=== PATIENT | female | born 1995 | race Caucasian/White ===

== ENCOUNTER 2018-09-05 17:58 | Inpatient (IN) | payer MEDICAID ==
[2018-09-05] MEDS ORDERED: Acetaminophen 325 MG Tab PO PRN (20:12)
[2018-09-05] MEDS ORDERED: Sodium Chloride 0.9% 10 ML Syringe FLUSH PRN (20:12)
--- NOTE | 2018-09-05 20:24 | PCM.LDHP ---
L&D History of Present Illness - General Date of Service: 09/05/18 (labor, PROM) Admit Problem/Dx: Patient Status Order with Admit Dx/Problem 09/05/18 18:15 Admission Status [Patient Status] [ADT] Routine 09/05/18 20:13 Patient Status [ADT] Routine Admission Diagnosis/Problem Admission Diagnosis/Problem Labor established Source of Information: Patient History Limitations: Reports: No Limitations - History of Present Illness Timing/Duration: Reports: minutes: (2) Location, : Reports: Lower back Quality: Reports: Pressure Severity: Mild Improves with: Reports: None Worsens with: Reports: None Associated Symptoms: Reports: vaginal fluid - Related Data Allergies/Adverse Reactions: Allergies Allergy/AdvReac Type Severity Reaction Status Date / Time bee pollen Allergy Severe Hives Verified 09/05/18 18:48 Past Medical History 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: : 3 Para: 0 LMP (Approximate): (TYLOR 09/05/18) Other OB/BYN History: D and C - Past Surgical History Cardiovascular Surgical History: Reports: None GI Surgical History: Reports: Hernia, Abdominal Social & Family History - Family History Family Medical History: Noncontributory - Tobacco Use Smoking Status *Q: Current Every Day Smoker Years of Tobacco use: 5 Packs/Tins Daily: 0.5 Used Tobacco, but Quit: No Second Hand Smoke Exposure: Yes - Caffeine Use Caffeine Use: Reports: Soda - Recreational Drug Use Recreational Drug Use: No H&P Review of Systems - Review of Systems: Review Of Systems: See Below General: Reports: No Symptoms HEENT: Reports: No Symptoms Pulmonary: Reports: No Symptoms Cardiovascular: Reports: No Symptoms Gastrointestinal: Reports: No Symptoms Genitourinary: Reports: No Symptoms Musculoskeletal: Reports: No Symptoms Skin: Reports: No Symptoms Psychiatric: Reports: No Symptoms Neurological: Reports: No Symptoms Hematologic/Lymphatic: Reports: No Symptoms Immunologic: Reports: No Symptoms L&D Exam - Exam Exam: See Below - Vital Signs Vital Signs: Last Vital Signs Temp 97.7 F 09/05/18 18:30 Pulse 110 H 09/05/18 18:30 Resp 16 09/05/18 18:30 BP 110/70 09/05/18 18:30 Pulse Ox 97 09/05/18 18:30 - OB Specific Contraction Duration (sec): 50-70 Contraction Frequency (min): 3-5 Contraction Intensity: Mild Movement: Active Heart Tones: Present Heart Rate (FHR) Variability: Moderate (6-25 bmp) Presentation: Vertex Estimated Weight: 7 pounds - Stanley Score Stanley Score Cervix Position: Midposition Stanley Score Consistency: Soft Stanley Score Effacement: 51-70% Stanley Score Dilation: 1-2 cm Stanley Score Infant's Station: -1 ,0 Stanley Score Total: 8 - Exam General: Alert, Oriented HEENT: PERRLA, Conjunctiva Clear, Mucosa Moist & Banks, Pupils Equal Neck: Supple Lungs: Clear to Auscultation, Normal Respiratory Effort Cardiovascular: Regular Rate, Regular Rhythm GI/Abdominal Exam: Normal Bowel Sounds, No Mass Rectal Exam: Normal Rectal Tone Genitourinary: Cervical dilitation, Enlarged uterus, Vaginal discharge Back Exam: Normal Inspection, Full Range of Motion Extremities: No Pedal Edema, Normal Capillary Refill Skin: Warm, Dry, Intact Neurological: Cranial Nerves Intact, Reflexes Equal Bilateral Psychiatric: Alert, Normal Affect, Normal Mood - Patient Data Lab Results Last 24 hrs: Laboratory Results - last 24 hr 09/05/18 09/05/18 09/05/18 Range/Units 18:14 18:16 19:55 WBC (4.5-11.0) K/uL RBC (3.30-5.50) M/uL Hgb (12.0-15.0) g/dL Hct (36.0-48.0) % MCV (80-98) fL MCH (27-31) pg MCHC (32-36) % Plt Count (150-400) K/uL Neut % (Auto) (36-66) % Lymph % (Auto) (24-44) % Mckean % (Auto) (2-6) % Eos % (Auto) (2-4) % Baso % (Auto) (0-1) % Urine Color Yellow Urine Appearance Slightly cloudy Urine pH 5.0 (4.5-8.0) Ur Specific [place] 1.010 (1.008-1.030) Urine Protein Negative (NEGATIVE) mg/dL Urine Glucose (UA) Normal (NEGATIVE) mg/dL Urine Ketones Negative (NEGATIVE) mg/dL Urine Occult Blood Negative (NEGATIVE) Urine Nitrite Negative (NEGATIVE) Urine Bilirubin Negative (NEGATIVE) Urine Urobilinogen Normal (NORMAL) mg/dL Ur Leukocyte Esterase Negative (NEGATIVE) Membrane Rupture Positive H (NEGATIVE) Urine Opiates Screen Negative (NEGATIVE) Ur Oxycodone Screen Negative (NEGATIVE) Urine Methadone Screen Negative (NEGATIVE) Ur Propoxyphene Screen Negative (NEGATIVE) Ur Barbiturates Screen Negative (NEGATIVE) Ur Tricyclics Screen Negative (NEGATIVE) Ur Phencyclidine Scrn Negative (NEGATIVE) Ur Amphetamine Screen Negative (NEGATIVE) U Methamphetamines Scrn Negative (NEGATIVE) Urine MDMA Screen Negative (NEGATIVE) U Benzodiazepines Scrn Negative (NEGATIVE) U Cocaine Metab Screen Negative (NEGATIVE) U Marijuana (THC) Screen Negative (NEGATIVE) 09/05/18 Range/Units 20:02 WBC 13.8 H (4.5-11.0) K/uL RBC 3.87 (3.30-5.50) M/uL Hgb 10.8 L (12.0-15.0) g/dL Hct 33.7 L (36.0-48.0) % MCV 87 (80-98) fL MCH 28 (27-31) pg MCHC 32 (32-36) % Plt Count 176 (150-400) K/uL Neut % (Auto) 76 H (36-66) % Lymph % (Auto) 16 L (24-44) % Mckean % (Auto) 8 H (2-6) % Eos % (Auto) 1 L (2-4) % Baso % (Auto) 0 (0-1) % Urine Color Urine Appearance Urine pH (4.5-8.0) Ur Specific [place] (1.008-1.030) Urine Protein (NEGATIVE) mg/dL Urine Glucose (UA) (NEGATIVE) mg/dL Urine Ketones (NEGATIVE) mg/dL Urine Occult Blood (NEGATIVE) Urine Nitrite (NEGATIVE) Urine Bilirubin (NEGATIVE) Urine Urobilinogen (NORMAL) mg/dL Ur Leukocyte Esterase (NEGATIVE) Membrane Rupture (NEGATIVE) Urine Opiates Screen (NEGATIVE) Ur Oxycodone Screen (NEGATIVE) Urine Methadone Screen (NEGATIVE) Ur Propoxyphene Screen (NEGATIVE) Ur Barbiturates Screen (NEGATIVE) Ur Tricyclics Screen (NEGATIVE) Ur Phencyclidine Scrn (NEGATIVE) Ur Amphetamine Screen (NEGATIVE) U Methamphetamines Scrn (NEGATIVE) Urine MDMA Screen (NEGATIVE) U Benzodiazepines Scrn (NEGATIVE) U Cocaine Metab Screen (NEGATIVE) U Marijuana (THC) Screen (NEGATIVE) Result Diagrams: 09/05/18 20:02 - Problem List (1) Smoker SNOMED Code(s): 90478316 ICD Code: F17.200 - NICOTINE DEPENDENCE, UNSPECIFIED, UNCOMPLICATED Status : Acute Current Visit: Yes (2) SNOMED Code(s): 09988067 ICD Code: Z34.90 - ENCNTR FOR SUPRVSN OF NORMAL , UNSP, UNSP TRIMESTER Status: Acute Current Visit: Yes Qualifiers: Weeks of gestation: 38 weeks Qualified Code(s): Z3A.38 - 38 weeks gestation of (3) PROM (premature rupture of membranes) SNOMED Code(s): 72064348 ICD Code: O42.90 - ASHANTI ROM, 7TH0 BETW RUPT & ONST LABR, UNSP WEEKS OF GEST Status: Acute Current Visit: Yes Qualifiers: PROM onset of labor timing: onset of labor within 24 hours of rupture Problem List Initiated/Reviewed/Updated: Yes Orders Last 24hrs: Active Orders 24 hr Category Date Time Status Patient Status [ADT] Routine ADT 09/05/18 20:13 Ordered Antiembolic Devices [RC] .Routine Care 09/05/18 20:15 Ordered Communication Order [RC] ASDIRECTED Care 09/05/18 20:13 Ordered Communication Order [RC] Per Unit Routine Care 09/05/18 20:13 Ordered Communication Order [RC] Per Unit Routine Care 09/05/18 20:13 Ordered Communication Order [RC] Per Unit Routine Care 09/05/18 20:13 Ordered Heart Tones [RC] PER UNIT ROUTINE Care 09/05/18 20:13 Ordered Non Stress Test [RC] Click to Edit Care 09/05/18 20:13 Ordered May Shower [RC] ASDIRECTED Care 09/05/18 20:12 Ordered Nitrous Oxide Delivery [RC] ASDIRECTED Care 09/05/18 20:13 Ordered Notify Provider Vital Signs [RC] PRN Care 09/05/18 20:12 Ordered Notify Provider [RC] PRN Care 09/05/18 20:13 Ordered Oxygen Therapy [RC] ASDIRECTED Care 09/05/18 20:13 Ordered Pulse Oximetry [RC] ASDIRECTED Care 09/05/18 20:13 Ordered Up ad Rosamaria [RC] ASDIRECTED Care 09/05/18 20:12 Ordered VTE/DVT Education [RC] Click to Edit Care 09/05/18 20:15 Ordered Verify Patient Consent Obtain [RC] ASDIRECTED Care 09/05/18 20:13 Ordered Vital Signs [RC] PER UNIT ROUTINE Care 09/05/18 20:13 Ordered Vital Signs [RC] PER UNIT ROUTINE Care 09/05/18 20:13 Ordered Clear Liquid Diet [DIET] Diet 09/06/18 Breakfast Ordered CBC W/O DIFF,HEMOGRAM [HEME] Routine Lab 09/05/18 20:12 Ordered Acetaminophen [Tylenol] Med 09/05/18 20:12 Ordered 650 mg PO Q4H PRN Oxytocin/Normal Saline [Pitocin in NS 20 Units/1,000 ML Med 09/05/18 20:18 Ordered ] 20 unit in 1,000 ml IV ONETIME Sodium Chloride 0.9% [Saline Flush] Med 09/05/18 20:12 Ordered 10 ml FLUSH ASDIRECTED PRN fentaNYL [Sublimaze] Med 09/05/18 20:12 Ordered 100 mcg IVPUSH Q1H PRN DVT/VTE Prophylaxis Reflex [OM.PC] Routine Oth 09/05/18 20:12 Ordered Saline Lock Insert [OM.PC] Routine Oth 09/05/18 20:13 Ordered Resuscitation Status Routine Resus Stat 09/05/18 20:12 Ordered Medication Orders Acetaminophen (Tylenol) 650 mg PO Q4H PRN PRN Reason: Pain (Mild 1-3) and fever Fentanyl (Sublimaze) 100 mcg IVPUSH Q1H PRN PRN Reason: Pain (moderate 4-6) Oxytocin/Sodium Chloride (Pitocin In Ns 20 Units/1,000 Ml) 20 unit in 1,000 mls @ 999 mls/hr IV ONETIME ONE; Protocol Stop: 09/05/18 21:18 Sodium Chloride (Saline Flush) 10 ml FLUSH ASDIRECTED PRN PRN Reason: Keep Vein Open Assessment/Plan Comment:: 09/05/18 This 23 year old presented with rupture of membranes at home at about 1600 this evening. Fluid was clear. She is 38 3/7 weeks gestation, based on Early US. Positive AmniSure. Contractions started and are about 2-3 minutes apart and regular. Labs: HIV neg, Rubella Immune, GBS neg, ABO A pos cervical exam by nurse was 2-3 /60/-1 at 1855. Plan: Admit for PROM Monitor for active labor. Doesn't want an epidural would like IV meds and or Nitrous for pain management UDS and UA neg HGB 10.8 and PLT 176 Smoker
[2018-09-05] MEDS: fentaNYL 100 MCG/2 ML SDV IVPUSH PRN ×2 (21:41→22:45)
[2018-09-05] MEDS: Lactated Ringers 1,000 ML IV SCH (22:39)
[2018-09-06] MEDS ORDERED: Ondansetron 4 MG/2 ML SDV IVPUSH PRN (00:30)
[2018-09-06] MEDS ORDERED: ePHEDrine 50 MG/ML SDV ONE (00:50)
[2018-09-06] MEDS ORDERED: Ropivacaine 100 ML ONE (01:15)
[2018-09-06] MEDS ORDERED: ePHEDrine 50 MG/ML SDV IVPUSH PRN (01:31)
[2018-09-06] MEDS ORDERED: diphenhydrAMINE 50 MG/ML SDV IVPUSH PRN ×2 (01:31)
[2018-09-06] MEDS ORDERED: Naloxone 0.4 MG/ML SDV IVPUSH PRN (01:31)
[2018-09-06] MEDS ORDERED: Sodium Chloride 0.9% 10 ML Syringe FLUSH PRN (01:31)
[2018-09-06] MEDS: Lactated Ringers 1,000 ML IV SCH ×2 (01:56→07:27)
[2018-09-06] MEDS ORDERED: fentaNYL 100 MCG/2 ML SDV ONE (02:38)
--- NOTE | 2018-09-06 03:11 | PCM.PNLD ---
Labor Progress Note - VS & Meds Vital Signs: Last Vital Signs Temp 97.6 F 09/06/18 00:50 Pulse 82 09/06/18 01:34 Resp 18 09/06/18 02:14 BP 138/66 09/06/18 01:34 Pulse Ox 94 L 09/06/18 01:34 Active Medications: Current Medications Acetaminophen (Tylenol) 650 mg PO Q4H PRN PRN Reason: Pain (Mild 1-3) and fever Diphenhydramine HCl (Benadryl) 25 mg IVPUSH Q6H PRN PRN Reason: Itching Diphenhydramine HCl (Benadryl) 50 mg IVPUSH Q6H PRN PRN Reason: Itching Ephedrine Sulfate (Ephedrine Sulfate) 10 mg IVPUSH ASDIRECTED PRN PRN Reason: Hypotension Fentanyl (Sublimaze) 100 mcg IVPUSH Q1H PRN PRN Reason: Pain (moderate 4-6) Last Admin: 09/05/18 22:45 Dose: 100 mcg Lactated Ringer's (Ringers, Lactated) 1,000 mls @ 125 mls/hr IV ASDIRECTED ONOFRE ; Protocol Last Admin: 09/06/18 01:56 Dose: 125 mls/hr Naloxone HCl (Narcan) 0.1 mg IVPUSH ASDIRECTED PRN PRN Reason: Oversedation Ondansetron HCl (Zofran) 4 mg IVPUSH Q4H PRN PRN Reason: Nausea/Vomiting Last Admin: 09/06/18 00:49 Dose: 4 mg Sodium Chloride (Saline Flush) 10 ml FLUSH ASDIRECTED PRN PRN Reason: Keep Vein Open Sodium Chloride (Saline Flush) 10 ml FLUSH ASDIRECTED PRN PRN Reason: Keep Vein Open Discontinued Medications Ephedrine Sulfate (Ephedrine Sulfate) Confirm Administered Dose 50 mg .ROUTE .STK-MED ONE Stop: 09/06/18 00:51 Fentanyl (Sublimaze) Confirm Administered Dose 100 mcg .ROUTE .STK-MED ONE Stop: 09/06/18 02:39 Oxytocin/Sodium Chloride (Pitocin In Ns 20 Units/1,000 Ml) 20 unit in 1,000 mls @ 999 mls/hr IV ONETIME ONE; Protocol Stop: 09/05/18 21:18 Ropivacaine (Naropin 0.2%) Confirm Administered Dose 100 mls @ as directed .ROUTE .STK-MED ONE Stop: 09/06/18 01:16 - Uterine Contractions Uterine Monitoring Mode: External Gilead Contraction Frequency (min): 1-3 Contraction Duration (sec): 40-60 Contraction Intensity: Strong Uterine Resting Tone: Soft - Monitoring Monitor Mode: Doppler/Auscultation Heart Rate (FHR) Baseline: 120 Heart Rate (FHR) Variability: Moderate (6-25 bmp) Accelerations: Present, 15x15 Decelerations: None Strip Review: Category I - Vaginal Exam Dilation (cm): 9 Effacement (Percent): 100 Station: 1 Cervical Position: Anterior Sterile Vaginal Exam Performed By: Lisa Freedman Vaginal Exam Comment: slightly swollen right rim present, close to complete, bloody show. nice progress all night, back labor and pain management has been a challenge. rebolus of epidural done and that helped. - Labor Progress (Free Text) Labor Progress: plan for vaginal delivery
[2018-09-06] MEDS ORDERED: Lidocaine 1% 50 ML MDV ONE (03:30)
[2018-09-06] MEDS ORDERED: Misoprostol 200 MCG Tab ONE (03:47)
[2018-09-06] MEDS ORDERED: Methylergonovine 0.2 MG/1 ML Amp ONE (03:47)
[2018-09-06] MEDS ORDERED: Carboprost Tromethamine 250 MCG/1 ML Amp ONE (03:47)
[2018-09-06] MEDS ORDERED: fentaNYL 100 MCG/2 ML SDV IVPUSH ONE ×2 (03:50)
[2018-09-06] MEDS ORDERED: Methylergonovine 0.2 MG/1 ML Amp IM PRN (04:14)
[2018-09-06] MEDS ORDERED: Ondansetron 4 MG/2 ML SDV ONE (04:40)
[2018-09-06] MEDS ORDERED: Rocuronium 50 MG/5 ML Vial ONE (04:40)
[2018-09-06] MEDS ORDERED: Succinylcholine 200 MG/10 ML MDV ONE (04:40)
[2018-09-06] MEDS ORDERED: Propofol 200 MG/20 ML SDV ONE (04:40)
[2018-09-06] MEDS ORDERED: Neostigmine Methylsulfate 1 MG/ML 5 ML Syringe ONE (04:40)
[2018-09-06] MEDS ORDERED: fentaNYL 250 MCG/5 ML SDV ONE (04:40)
[2018-09-06] MEDS ORDERED: Dexamethasone 4 MG/ML SDV ONE (04:40)
[2018-09-06] MEDS ORDERED: Glycopyrrolate 0.2 MG/ML 5 ML MDV ONE (04:40)
[2018-09-06] MEDS ORDERED: Lanolin 100% Cream 40 GM Tube TOP PRN (04:46)
--- NOTE | 2018-09-06 05:09 | ANES ---
DATE OF SERVICE: 09/06/2018 LABOR EPIDURAL NOTE: I was called to the OB Department for a young lady that was in labor and requesting a labor epidural. I was at the bedside at approximately 0045 hours. A brief history and physical was done with the patient. The patient denies taking any blood thinners, does not have any high blood pressure, and overall normal for the patient. Platelet count was 176. Risks and benefits were reviewed with the patient and significant other. The patient verbalizes her understanding and wishes to proceed with the labor epidural at this time. The patient was then sat at the edge of the bed. Betadine prep x3 to the lumbar region was done. Sterile drape was placed. 1% lidocaine skin wheal and deep was done. A 17-gauge Tuohy needle was inserted at approximately the L3-L4 position. Loss of resistance was achieved at approximately 7 cm. Negative paresthesia, negative heme, and negative CSF were noted at that time. Catheter was then placed without difficulty, Tuohy needle was withdrawn, and the catheter was pulled back and secured at approximately 14 cm. I then proceeded to give the patient a 3 mL test dose and then laid the patient in supine position with left uterine displacement and head of bed slightly elevated. After several minutes after the test dose, the patient was showing no signs of increased heart rate or no significant numbness or tingling in her legs. I then proceeded to give the patient 12 mL of 0.2% ropivacaine bolus via the epidural and started her on a 0.2% ropivacaine drip at 12 mL an hour. The patient tolerated the procedure without difficulty. Please refer to the nurse's notes for vital signs. The patient's blood pressure did tolerate the bolus without difficulty. We will continue to monitor the patient as needed. El Nunez CRNA /[id number]
[2018-09-06] MEDS ORDERED: Oxytocin 10 Units/1 ML SDV ONE (06:28)
[2018-09-06] MEDS ORDERED: Sodium Chloride 0.9% 1,000 ML ONE (06:29)
--- NOTE | 2018-09-06 06:34 | PCM.DEL ---
L & D Note - General Info Date of Service: 09/06/18 (Childbirth) Mother's Due Date: 09/16/18 - Delivery Note Labor: Spontaneous Delivery Outcome: Livebirth Infant Delivery Method: Spontaneous Vaginal Delivery-Single Delivery Mode: Spontaneous Presentation: Right Occiput Anterior ([place]) Nuchal Cord: Reduced Anesthesia Type: Epidural Amniotic Fluid Description: Meconium Stained Episiotomy Type: None Laceration: 2nd Degree, Vaginal Suture type: Vicryl Suture size: 3-0 Placenta: Manual Removal, Retained, Meconium Stained Cord: 3 Vessels Estimated Blood Loss: 600 Resuscitation Needed: No : Stimulated, Warmed, [place] Used, Warmer Used Provider: Lisa Freedman Score 1 min: 8 Score 5 min: 9 Post Delivery Events: Hemorrhage, Retained Placenta Second Stage Interventions: Reports: Second Nurse Reviewed Heart Tones, Pushing Effectively, Pushing Involuntarily, Pushing, McRobert's Position Delivery Comments (Free Text/Narrative):: 09/06/18 This 23 year old who is 38 3/7 weeks gestation delivered at 0339 via in [place] a viable male . She progressed normally over the night and was complete at 0324. Her epidural didn't cover her pain a nicely as hoped but she did well pushing. had a nuchal cord which was reduced after delivery. Large amount of meconium fluid present with delivery. The cried spontaneously and was placed on mother's abdomen, Delayed cord clamping and active management of third stage were done. After the cord was clamped and cut he was taken to the warmer for further assessment. Apgars of 8-9, three vessel cord. weight 7-8. transitioned well. The placenta come spontaneously of part of it, then we had retained membranes, after 30 minutes the OR team was called for removal of retained membranes and repair of second degree bilateral vaginal wall tears. EBL 600cc Baby to nursery and mother to OR for repair. Consent was obtained from [place] for removal of retained membranes and repair of tears under anesthesia. pe-op DX retained membranes and bilateral vaginal wall tears. Post op same Procedure: suction and removal of clots and membranes from uterus Anesthesia: general IV fluids LR at 125cc/hr with 20 units pitocin Standard repair of lacerations with 3-0 vicryl, locking sutures, deeps and running stitches were used to repair. hemostasis was obtained. Patient to operating room and general anesthesia was administered. She was placed in dorsal lithotomy position wit stirrups. A weighed speculum and retractor was used to visual the cervix. no teras found on cervix. a ring forcep was used to grasp the cervix and suction curettage and 4x4 on around ring forcep were used to remove membranes. blooding subsided and clots removed. Then repair of bilateral vaginal wall tears were repaired. hemostasis achieved. Pateint tolerated the procedure well and the counts were correct. Patient to recovery. Mother to receive another liter of LR with 20 units of Pitocin at 125cc/hr and Oral Methergine times 6 doses - General Info Date of Service: 09/06/18 Admission Dx/Problem (Free Text): Patient Status Order with Admit Dx/Problem 09/05/18 18:15 Admission Status [Patient Status] [ADT] Routine 09/05/18 20:13 Patient Status [ADT] Routine Admission Diagnosis/Problem Admission Diagnosis/Problem Labor established Functional Status: Reports: Pain Controlled - Review of Systems General: Reports: No Symptoms HEENT: Reports: No Symptoms Pulmonary: Reports: No Symptoms Cardiovascular: Reports: No Symptoms Gastrointestinal: Reports: No Symptoms Genitourinary: Reports: No Symptoms Musculoskeletal: Reports: No Symptoms Skin: Reports: No Symptoms Neurological: Reports: No Symptoms Psychiatric: Reports: No Symptoms - Patient Data Vitals - Most Recent: Last Vital Signs Temp 95.7 F 09/06/18 03:14 Pulse 82 09/06/18 01:34 Resp 18 09/06/18 02:14 BP 138/66 09/06/18 01:34 Pulse Ox 94 L 09/06/18 01:34 Weight - Most Recent: 223 lb Lab Results Last 24 Hours: Laboratory Results - last 24 hr 09/05/18 09/05/18 09/05/18 Range/Units 18:14 18:16 19:55 WBC (4.5-11.0) K/uL RBC (3.30-5.50) M/uL Hgb (12.0-15.0) g/dL Hct (36.0-48.0) % MCV (80-98) fL MCH (27-31) pg MCHC (32-36) % Plt Count (150-400) K/uL Neut % (Auto) (36-66) % Lymph % (Auto) (24-44) % [place] % (Auto) (2-6) % Eos % (Auto) (2-4) % Baso % (Auto) (0-1) % Urine Color Yellow Urine Appearance Slightly cloudy Urine pH 5.0 (4.5-8.0) Ur Specific [place] 1.010 (1.008-1.030) Urine Protein Negative (NEGATIVE) mg/dL Urine Glucose (UA) Normal (NEGATIVE) mg/dL Urine Ketones Negative (NEGATIVE) mg/dL Urine Occult Blood Negative (NEGATIVE) Urine Nitrite Negative (NEGATIVE) Urine Bilirubin Negative (NEGATIVE) Urine Urobilinogen Normal (NORMAL) mg/dL Ur Leukocyte Esterase Negative (NEGATIVE) Membrane Rupture Positive H (NEGATIVE) Urine Opiates Screen Negative (NEGATIVE) Ur Oxycodone Screen Negative (NEGATIVE) Urine Methadone Screen Negative (NEGATIVE) Ur Propoxyphene Screen Negative (NEGATIVE) Ur Barbiturates Screen Negative (NEGATIVE) Ur Tricyclics Screen Negative (NEGATIVE) Ur Phencyclidine Scrn Negative (NEGATIVE) Ur Amphetamine Screen Negative (NEGATIVE) U Methamphetamines Scrn Negative (NEGATIVE) Urine MDMA Screen Negative (NEGATIVE) U Benzodiazepines Scrn Negative (NEGATIVE) U Cocaine Metab Screen Negative (NEGATIVE) U Marijuana (THC) Screen Negative (NEGATIVE) 09/05/18 Range/Units 20:02 WBC 13.8 H (4.5-11.0) K/uL RBC 3.87 (3.30-5.50) M/uL Hgb 10.8 L (12.0-15.0) g/dL Hct 33.7 L (36.0-48.0) % MCV 87 (80-98) fL MCH 28 (27-31) pg MCHC 32 (32-36) % Plt Count 176 (150-400) K/uL Neut % (Auto) 76 H (36-66) % Lymph % (Auto) 16 L (24-44) % [place] % (Auto) 8 H (2-6) % Eos % (Auto) 1 L (2-4) % Baso % (Auto) 0 (0-1) % Urine Color Urine Appearance Urine pH (4.5-8.0) Ur Specific [place] (1.008-1.030) Urine Protein (NEGATIVE) mg/dL Urine Glucose (UA) (NEGATIVE) mg/dL Urine Ketones (NEGATIVE) mg/dL Urine Occult Blood (NEGATIVE) Urine Nitrite (NEGATIVE) Urine Bilirubin (NEGATIVE) Urine Urobilinogen (NORMAL) mg/dL Ur Leukocyte Esterase (NEGATIVE) Membrane Rupture (NEGATIVE) Urine Opiates Screen (NEGATIVE) Ur Oxycodone Screen (NEGATIVE) Urine Methadone Screen (NEGATIVE) Ur Propoxyphene Screen (NEGATIVE) Ur Barbiturates Screen (NEGATIVE) Ur Tricyclics Screen (NEGATIVE) Ur Phencyclidine Scrn (NEGATIVE) Ur Amphetamine Screen (NEGATIVE) U Methamphetamines Scrn (NEGATIVE) Urine MDMA Screen (NEGATIVE) U Benzodiazepines Scrn (NEGATIVE) U Cocaine Metab Screen (NEGATIVE) U Marijuana (THC) Screen (NEGATIVE) Med Orders - Current: Current Medications Acetaminophen (Tylenol) 650 mg PO Q4H PRN PRN Reason: Pain (Mild 1-3) and fever Diphenhydramine HCl (Benadryl) 25 mg IVPUSH Q6H PRN PRN Reason: Itching Diphenhydramine HCl (Benadryl) 50 mg IVPUSH Q6H PRN PRN Reason: Itching Emollient Ointment (Lansinoh Hpa) 1 gm TOP ASDIRECTED PRN PRN Reason: Sore Nipples Ephedrine Sulfate (Ephedrine Sulfate) 10 mg IVPUSH ASDIRECTED PRN PRN Reason: Hypotension Fentanyl (Sublimaze) 100 mcg IVPUSH Q1H PRN PRN Reason: Pain (moderate 4-6) Last Admin: 09/05/18 22:45 Dose: 100 mcg Lactated Ringer's (Ringers, Lactated) 1,000 mls @ 125 mls/hr IV ASDIRECTED ONOFRE ; Protocol Last Admin: 09/06/18 01:56 Dose: 125 mls/hr Oxytocin/Sodium Chloride (Pitocin In Ns 20 Units/1,000 Ml) 20 unit in 1,000 mls @ 999 mls/hr IV ONETIME ONE; Protocol Stop: 09/06/18 06:49 Methylergonovine Maleate (Methergine) 0.2 mg IM Q4H PRN PRN Reason: Bleeding Last Admin: 09/06/18 04:14 Dose: 0.2 mg Methylergonovine Maleate (Methergine) 0.2 mg PO TID ONOFRE Naloxone HCl (Narcan) 0.1 mg IVPUSH ASDIRECTED PRN PRN Reason: Oversedation Ondansetron HCl (Zofran) 4 mg IVPUSH Q4H PRN PRN Reason: Nausea/Vomiting Last Admin: 09/06/18 00:49 Dose: 4 mg Sodium Chloride (Saline Flush) 10 ml FLUSH ASDIRECTED PRN PRN Reason: Keep Vein Open Sodium Chloride (Saline Flush) 10 ml FLUSH ASDIRECTED PRN PRN Reason: Keep Vein Open Discontinued Medications Carboprost Tromethamine (Hemabate Ds) Confirm Administered Dose 250 mcg .ROUTE .STK-MED ONE Stop: 09/06/18 03:48 Last Admin: 09/06/18 04:19 Dose: Not Given Dexamethasone (Dexamethasone) Confirm Administered Dose 4 mg .ROUTE .STK-MED ONE Stop: 09/06/18 04:41 Ephedrine Sulfate (Ephedrine Sulfate) Confirm Administered Dose 50 mg .ROUTE .STK-MED ONE Stop: 09/06/18 00:51 Last Admin: 09/06/18 04:19 Dose: Not Given Fentanyl (Sublimaze) Confirm Administered Dose 100 mcg .ROUTE .STK-MED ONE Stop: 09/06/18 02:39 Fentanyl (Sublimaze) Confirm Administered Dose 250 mcg .ROUTE .STK-MED ONE Stop: 09/06/18 04:41 Glycopyrrolate (Robinul) Confirm Administered Dose 1 mg .ROUTE .STK-MED ONE Stop: 09/06/18 04:41 Oxytocin/Sodium Chloride (Pitocin In Ns 20 Units/1,000 Ml) 20 unit in 1,000 mls @ 999 mls/hr IV ONETIME ONE; Protocol Stop: 09/05/18 21:18 Last Admin: 09/06/18 03:45 Dose: 999 mls/hr, 999 mls/hr Ropivacaine (Naropin 0.2%) Confirm Administered Dose 100 mls @ as directed .ROUTE .STK-MED ONE Stop: 09/06/18 01:16 Lidocaine HCl (Xylocaine 1%) Confirm Administered Dose 50 ml .ROUTE .STK-MED ONE Stop: 09/06/18 03:31 Last Admin: 09/06/18 04:19 Dose: Not Given Methylergonovine Maleate (Methergine) Confirm Administered Dose 0.2 mg .ROUTE .STK-MED ONE Stop: 09/06/18 03:48 Last Admin: 09/06/18 04:19 Dose: Not Given Misoprostol (Cytotec) Confirm Administered Dose 800 mcg .ROUTE .STK-MED ONE Stop: 09/06/18 03:48 Last Admin: 09/06/18 04:19 Dose: Not Given Neostigmine Methylsulfate (Neostigmine) Confirm Administered Dose 5 mg .ROUTE .STK-MED ONE Stop: 09/06/18 04:41 Ondansetron HCl (Zofran) Confirm Administered Dose 4 mg .ROUTE .STK-MED ONE Stop: 09/06/18 04:41 Propofol (Diprivan 20 Ml) Confirm Administered Dose 200 mg .ROUTE .STK-MED ONE Stop: 09/06/18 04:41 Rocuronium [place] (Zemuron) Confirm Administered Dose 50 mg .ROUTE .STK-MED ONE Stop: 09/06/18 04:41 Succinylcholine Chloride (Quelicin) Confirm Administered Dose 200 mg .ROUTE .STK -MED ONE Stop: 09/06/18 04:41 - Exam General: Alert, Oriented HEENT: Pupils Equal, Pupils Reactive, Mucous Membr. Moist/[place] Neck: Supple Lungs: Clear to Auscultation, Normal Respiratory Effort Cardiovascular: Regular Rate, Regular Rhythm GI/Abdominal Exam: Soft (Female) Exam: Cervical Dilatation, Enlarged Uterus, Vaginal Bleeding, Vaginal Tears Back Exam: Normal Inspection Extremities: Normal Inspection, No Pedal Edema, Normal Capillary Refill Skin: Warm, Dry, Intact Wound/Incisions: Healing Well Neurological: No New Focal Deficit Psy/Mental Status: Alert, Normal Affect, Normal Mood - Problem List & Annotations (1) Smoker SNOMED Code(s): 10347602 Code(s): F17.200 - NICOTINE DEPENDENCE, UNSPECIFIED, UNCOMPLICATED Status: Acute Current Visit: Yes (2) SNOMED Code(s): 78359132 Code(s): Z34.90 - ENCNTR FOR SUPRVSN OF NORMAL , UNSP, UNSP TRIMESTER Status: Acute Current Visit: Yes Qualifiers: Weeks of gestation: 38 weeks Qualified Code(s): Z3A.38 - 38 weeks gestation of (3) PROM (premature rupture of membranes) SNOMED Code(s): 92934344 Code(s): O42.90 - ASHANTI ROM, 7TH0 BETW RUPT & ONST LABR, UNSP WEEKS OF GEST Status: Acute Current Visit: Yes Qualifiers: PROM onset of labor timing: onset of labor within 24 hours of rupture (4) () SNOMED Code(s): 565163935 Code(s): Z78.9 - OTHER SPECIFIED HEALTH STATUS Status: Acute Current Visit: Yes (5) Vaginal tear resulting from childbirth SNOMED Code(s): 725706169 Code(s): O71.4 - OBSTETRIC HIGH VAGINAL LACERATION ALONE Status: Acute Current Visit: Yes (6) Retained placenta or membranes SNOMED Code(s): 595164341 Code(s): O73.1 - RETAINED PORTIONS OF PLACENTA AND MEMBRANES, W/O HEMORRHAGE Status: Acute Current Visit: Yes - Problem List Review Problem List Initiated/Reviewed/Updated: Yes - My Orders Last 24 Hours: My Active Orders 09/05/18 20:12 May Shower [RC] ASDIRECTED Notify Provider Vital Signs [RC] PRN Up ad Rosamaria [RC] ASDIRECTED Acetaminophen [Tylenol] 650 mg PO Q4H PRN Sodium Chloride 0.9% [Saline Flush] 10 ml FLUSH ASDIRECTED PRN fentaNYL [Sublimaze] 100 mcg IVPUSH Q1H PRN DVT/VTE Prophylaxis Reflex [OM.PC] Routine Resuscitation Status Routine 09/05/18 20:13 Communication Order [RC] ASDIRECTED Communication Order [RC] Per Unit Routine Communication Order [RC] Per Unit Routine Communication Order [RC] Per Unit Routine Heart Tones [RC] PER UNIT ROUTINE Non Stress Test [RC] Click to Edit Notify Provider [RC] PRN Oxygen Therapy [RC] ASDIRECTED Pulse Oximetry [RC] ASDIRECTED Verify Patient Consent Obtain [RC] ASDIRECTED Vital Signs [RC] PER UNIT ROUTINE Vital Signs [RC] PER UNIT ROUTINE Saline Lock Insert [OM.PC] Routine 09/05/18 20:15 Antiembolic Devices [RC] .Routine VTE/DVT Education [RC] Click to Edit 09/06/18 00:15 Lactated Ringers [Ringers, Lactated] 1,000 ml IV ASDIRECTED 09/06/18 00:30 Ondansetron [Zofran] 4 mg IVPUSH Q4H PRN 09/06/18 01:15 Insert Sanders Catheter [Insert Urinary Catheter] [OM.PC] Q24H 09/06/18 02:14 Urinary Catheter Assessment [RC] ASDIRECTED 09/06/18 04:14 Methylergonovine [Methergine] 0.2 mg IM Q4H PRN 09/06/18 04:46 Patient Status [ADT] Routine Vital Signs [RC] PFP Lanolin [Lansinoh HPA] 1 gm TOP ASDIRECTED PRN Assess Lochia [WOMSER] Per Unit Routine Assess Uterine Involution [WOMSER] Per Unit Routine 09/06/18 04:47 Ice Therapy [OM.PC] Per Unit Routine Perineal Care [OM.PC] Per Unit Routine Sitz Bath [OM.PC] Per Unit Routine 09/06/18 05:11 CBC WITH AUTO DIFF [HEME] AM 09/06/18 05:49 Oxytocin/Normal Saline [Pitocin in NS 20 Units/1,000 ML] 20 unit in 1,000 ml IV ONETIME 09/06/18 08:00 HEMOGLOBIN [HEME] Routine 09/06/18 09:00 Methylergonovine [Methergine] 0.2 mg PO TID 09/06/18 Breakfast Regular Diet [DIET] - Assessment Assessment:: 09/06/18 23 yr old G3 now P1 38 3/7 weeks with retained membranes and bilateral second degree vaginal wall tears smoker - Plan Plan:: 09/05/18 This 23 year old presented with rupture of membranes at home at about 1600 this evening. Fluid was clear. She is 38 3/7 weeks gestation, based on Early US. Positive AmniSure. Contractions started and are about 2-3 minutes apart and regular. Labs: HIV neg, Rubella Immune, GBS neg, ABO A pos cervical exam by nurse was 2-3 /60/-1 at 1855. Plan: Admit for PROM Monitor for active labor. Doesn't want an epidural would like IV meds and or Nitrous for pain management UDS and UA neg HGB 10.8 and PLT 176 Smoker 09/06/18 Routine post cares CBC this morning and again tormorrow Methergine times 6 doses. no smoking support Discharge Tuesday
[2018-09-06] MEDS: Methylergonovine 0.2 MG Tab PO SCH ×3 (08:25→21:01)
[2018-09-06] MEDS ORDERED: Ibuprofen 200 MG Tab, 24 Tab Bulk Bottle PO PRN (12:57)
[2018-09-06] MEDS ORDERED: Acetaminophen 325 MG Tab, 50 Tab Bulk Bottle PO PRN (13:10)
[2018-09-06] MEDS ORDERED: Witch Hazel Medicated Pads 100/Jar TOP PRN (20:55)
[2018-09-06] MEDS ORDERED: Benzocaine 20% Top Spray 56 GM Bottle TOP PRN (20:55)
--- NOTE | 2018-09-07 08:15 | PCM.PNPP ---
- General Info Date of Service: 09/07/18 Functional Status: Reports: Pain Controlled - Review of Systems General: Reports: No Symptoms HEENT: Reports: No Symptoms Pulmonary: Reports: No Symptoms Cardiovascular: Reports: No Symptoms Gastrointestinal: Reports: No Symptoms Genitourinary: Reports: No Symptoms Musculoskeletal: Reports: No Symptoms Skin: Reports: No Symptoms Neurological: Reports: No Symptoms Psychiatric: Reports: No Symptoms - General Info Date of Service: 09/07/18 - Patient Data Vital Signs - Most Recent: Last Vital Signs Temp 35.0 C L 09/07/18 07:00 Pulse 66 09/07/18 07:00 Resp 18 09/07/18 07:00 BP 98/40 L 09/07/18 07:00 Pulse Ox 97 09/07/18 07:00 Weight - Most Recent: 101.151 kg Lab Results - Last 24 Hours: Laboratory Results - last 24 hr 09/06/18 09/07/18 Range/Units 08:08 05:58 WBC 14.3 H (4.5-11.0) K/uL RBC 3.24 L (3.30-5.50) M/uL Hgb 10.0 L 9.1 L (12.0-15.0) g/dL Hct 29.1 L (36.0-48.0) % MCV 90 (80-98) fL MCH 28 (27-31) pg MCHC 31 L (32-36) % Plt Count 150 (150-400) K/uL Neut % (Auto) 71 H (36-66) % Lymph % (Auto) 20 L (24-44) % [place] % (Auto) 9 H (2-6) % Eos % (Auto) 0 L (2-4) % Baso % (Auto) 0 (0-1) % Med Orders - Current: Current Medications Acetaminophen (Tylenol Bulk Bottle) 325 - 650 mg PO Q6H PRN PRN Reason: Pain Last Admin: 09/06/18 17:49 Dose: 650 mg Benzocaine (Fmia-V-Hhjjskb 20% [place]) 0 gm TOP ASDIRECTED PRN PRN Reason: Perineal Comfort Measure Last Admin: 09/06/18 21:15 Dose: 1 spray Diphenhydramine HCl (Benadryl) 25 mg IVPUSH Q6H PRN PRN Reason: Itching Diphenhydramine HCl (Benadryl) 50 mg IVPUSH Q6H PRN PRN Reason: Itching Emollient Ointment (Lansinoh Hpa) 1 gm TOP ASDIRECTED PRN PRN Reason: Sore Nipples Last Admin: 09/06/18 21:01 Dose: 1 appful Ephedrine Sulfate (Ephedrine Sulfate) 10 mg IVPUSH ASDIRECTED PRN PRN Reason: Hypotension Fentanyl (Sublimaze) 100 mcg IVPUSH Q1H PRN PRN Reason: Pain (moderate 4-6) Last Admin: 09/05/18 22:45 Dose: 100 mcg Lactated Ringer's (Ringers, Lactated) 1,000 mls @ 125 mls/hr IV ASDIRECTED ONOFRE ; Protocol Last Admin: 09/06/18 07:27 Dose: 125 mls/hr Ibuprofen (Motrin Bulk Bottle) 600 mg PO Q6H PRN PRN Reason: Pain Last Admin: 09/06/18 13:10 Dose: 600 mg Methylergonovine Maleate (Methergine) 0.2 mg IM Q4H PRN PRN Reason: Bleeding Last Admin: 09/06/18 04:14 Dose: 0.2 mg Methylergonovine Maleate (Methergine) 0.2 mg PO TID ONOFRE Stop: 09/07/18 21:01 Last Admin: 09/06/18 21:01 Dose: 0.2 mg Naloxone HCl (Narcan) 0.1 mg IVPUSH ASDIRECTED PRN PRN Reason: Oversedation Ondansetron HCl (Zofran) 4 mg IVPUSH Q4H PRN PRN Reason: Nausea/Vomiting Last Admin: 09/06/18 00:49 Dose: 4 mg Sodium Chloride (Saline Flush) 10 ml FLUSH ASDIRECTED PRN PRN Reason: Keep Vein Open Witch Tonia (Tucks) 1 pad TOP ASDIRECTED PRN PRN Reason: Perineal Comfort Measure Last Admin: 09/06/18 21:15 Dose: 1 pad Discontinued Medications Acetaminophen (Tylenol) 650 mg PO Q4H PRN PRN Reason: Pain (Mild 1-3) and fever Carboprost Tromethamine (Hemabate Ds) Confirm Administered Dose 250 mcg .ROUTE .STK-MED ONE Stop: 09/06/18 03:48 Last Admin: 09/06/18 04:19 Dose: Not Given Dexamethasone (Dexamethasone) Confirm Administered Dose 4 mg .ROUTE .STK-MED ONE Stop: 09/06/18 04:41 Ephedrine Sulfate (Ephedrine Sulfate) Confirm Administered Dose 50 mg .ROUTE .STK-MED ONE Stop: 09/06/18 00:51 Last Admin: 09/06/18 04:19 Dose: Not Given Fentanyl (Sublimaze) Confirm Administered Dose 100 mcg .ROUTE .STK-MED ONE Stop: 09/06/18 02:39 Fentanyl (Sublimaze) Confirm Administered Dose 250 mcg .ROUTE .STK-MED ONE Stop: 09/06/18 04:41 Fentanyl (Sublimaze) 25 mcg IVPUSH ONETIME ONE Stop: 09/06/18 03:51 Last Admin: 09/07/18 00:17 Dose: Not Given Fentanyl (Sublimaze) 50 mcg IVPUSH ONETIME ONE Stop: 09/06/18 03:51 Last Admin: 09/06/18 04:00 Dose: 50 mcg Glycopyrrolate (Robinul) Confirm Administered Dose 1 mg .ROUTE .STK-MED ONE Stop: 09/06/18 04:41 Oxytocin/Sodium Chloride (Pitocin In Ns 20 Units/1,000 Ml) 20 unit in 1,000 mls @ 999 mls/hr IV ONETIME ONE; Protocol Stop: 09/05/18 21:18 Last Admin: 09/06/18 03:45 Dose: 999 mls/hr, 999 mls/hr Ropivacaine (Naropin 0.2%) Confirm Administered Dose 100 mls @ as directed .ROUTE .STK-MED ONE Stop: 09/06/18 01:16 Oxytocin/Sodium Chloride (Pitocin In Ns 20 Units/1,000 Ml) 20 unit in 1,000 mls @ 999 mls/hr IV ONETIME ONE; Protocol Stop: 09/06/18 06:49 Last Admin: 09/06/18 07:48 Dose: 150 mls/hr, 150 mls/hr Sodium Chloride (Normal Saline) Confirm Administered Dose 1,000 mls @ as directed .ROUTE .STK-MED ONE Stop: 09/06/18 06:30 Lidocaine HCl (Xylocaine 1%) Confirm Administered Dose 50 ml .ROUTE .STK-MED ONE Stop: 09/06/18 03:31 Last Admin: 09/06/18 04:19 Dose: Not Given Methylergonovine Maleate (Methergine) Confirm Administered Dose 0.2 mg .ROUTE .STK-MED ONE Stop: 09/06/18 03:48 Last Admin: 09/06/18 04:19 Dose: Not Given Misoprostol (Cytotec) Confirm Administered Dose 800 mcg .ROUTE .STK-MED ONE Stop: 09/06/18 03:48 Last Admin: 09/06/18 04:19 Dose: Not Given Neostigmine Methylsulfate (Neostigmine) Confirm Administered Dose 5 mg .ROUTE .STK-MED ONE Stop: 09/06/18 04:41 Ondansetron HCl (Zofran) Confirm Administered Dose 4 mg .ROUTE .STK-MED ONE Stop: 09/06/18 04:41 Oxytocin (Pitocin) Confirm Administered Dose 20 unit .ROUTE .STK-MED ONE Stop: 09/06/18 06:29 Propofol (Diprivan 20 Ml) Confirm Administered Dose 200 mg .ROUTE .STK-MED ONE Stop: 09/06/18 04:41 Rocuronium [place] (Zemuron) Confirm Administered Dose 50 mg .ROUTE .STK-MED ONE Stop: 09/06/18 04:41 Sodium Chloride (Saline Flush) 10 ml FLUSH ASDIRECTED PRN PRN Reason: Keep Vein Open Succinylcholine Chloride (Quelicin) Confirm Administered Dose 200 mg .ROUTE .STK -MED ONE Stop: 09/06/18 04:41 - Interaction Infant Disposition, : in Room with Family Infant Interaction: Holding Infant Feeding: Breastfed Infant; Nursed Well Support Person: Mother, Significant Other - Recovery Exam Fundal Tone: Firm Fundal Level: 2 Fingerbreadths Below Umbilicus Fundal Placement: Midline Lochia Amount: Scant Lochia Color: Rubra/Red Perineum Description: Edematous Episiotomy/Laceration: Approximated Bladder Status: Nonpalpable Urinary Elimination: Not Voiding - Exam General: Alert, Oriented, Cooperative HEENT: Pupils Equal Neck: Supple Lungs: Clear to Auscultation, Normal Respiratory Effort Cardiovascular: Regular Rate, Regular Rhythm GI/Abdominal Exam: Normal Bowel Sounds, Soft, Non-Tender, No Organomegaly, No Distention, No Abnormal Bruit, No Mass, Pelvis Stable Extremities: Normal Inspection, Normal Range of Motion, Non-Tender, No Pedal Edema, Normal Capillary Refill Skin: Warm, Dry, Intact Wound/Incisions: Healing Well Neurological: No New Focal Deficit Psy/Mental Status: Alert, Normal Affect, Normal Mood - Problem List & Annotations (1) Vaginal delivery SNOMED Code(s): 482054340 Code(s): O80 - ENCOUNTER FOR FULL-TERM UNCOMPLICATED DELIVERY Status: Acute Current Visit: Yes (2) () SNOMED Code(s): 584270352 Code(s): Z78.9 - OTHER SPECIFIED HEALTH STATUS Status: Acute Current Visit: Yes (3) Retained placenta or membranes SNOMED Code(s): 504175337 Code(s): O73.1 - RETAINED PORTIONS OF PLACENTA AND MEMBRANES, W/O HEMORRHAGE Status: Acute Current Visit: Yes (4) Smoker SNOMED Code(s): 75132201 Code(s): F17.200 - NICOTINE DEPENDENCE, UNSPECIFIED, UNCOMPLICATED Status: Acute Current Visit: Yes (5) Vaginal tear resulting from childbirth SNOMED Code(s): 687264414 Code(s): O71.4 - OBSTETRIC HIGH VAGINAL LACERATION ALONE Status: Acute Current Visit: Yes - Problem List Review Problem List Initiated/Reviewed/Updated: Yes - Assessment Assessment:: 09/06/18 23 yr old G3 now P1 38 3/7 weeks with retained membranes and bilateral second degree vaginal wall tears smoker 09/07/2018 day one History of retained placenta, surgically removed Vaginal laceration repaired Fundus firm and bleeding decreasing:Hgb-9.1 fair Voiding and passing gas - Plan Plan:: 09/05/18 This 23 year old presented with rupture of membranes at home at about 1600 this evening. Fluid was clear. She is 38 3/7 weeks gestation, based on Early US. Positive AmniSure. Contractions started and are about 2-3 minutes apart and regular. Labs: HIV neg, Rubella Immune, GBS neg, ABO A pos cervical exam by nurse was 2-3 /60/-1 at 1855. Plan: Admit for PROM Monitor for active labor. Doesn't want an epidural would like IV meds and or Nitrous for pain management UDS and UA neg HGB 10.8 and PLT 176 Smoker 09/06/18 Routine post cares CBC this morning and again tormorrow Methergine times 6 doses. no smoking support Discharge 09/07/18 Continue routine post cares Continue to support and encourage - to see no smoking Discharge home tomorrow
[2018-09-07] MEDS: Methylergonovine 0.2 MG Tab PO SCH ×3 (10:00→21:55)
[2018-09-07] MEDS: Ferrous Sulfate 325 MG Tab PO SCH (17:34)
[2018-09-07] MEDS: Prenatal Multivitamin with Calcium/Folic Acid/Iron Tab PO SCH (17:34)
[2018-09-07] MEDS: Docusate Sodium 100 MG Cap PO SCH (17:34)
--- NOTE | 2018-09-08 08:45 | PCM.PNPP ---
- General Info Date of Service: 09/08/18 Admission Dx/Problem (Free Text): Patient Status Order with Admit Dx/Problem 09/05/18 18:15 Admission Status [Patient Status] [ADT] Routine 09/05/18 20:13 Patient Status [ADT] Routine Admission Diagnosis/Problem Admission Diagnosis/Problem Labor established Functional Status: Reports: Pain Controlled - Review of Systems General: Reports: No Symptoms HEENT: Reports: No Symptoms Pulmonary: Reports: No Symptoms Cardiovascular: Reports: No Symptoms Gastrointestinal: Reports: No Symptoms Genitourinary: Reports: No Symptoms Musculoskeletal: Reports: No Symptoms Skin: Reports: No Symptoms Neurological: Reports: No Symptoms Psychiatric: Reports: No Symptoms - Patient Data Vital Signs - Most Recent: Last Vital Signs Temp 95.1 F L 09/08/18 07:15 Pulse 57 L 09/08/18 07:15 Resp 16 09/08/18 07:15 BP 106/51 L 09/08/18 07:15 Pulse Ox 98 09/08/18 07:15 Weight - Most Recent: 222 lb 15.996 oz I&O - Last 24 Hours: Intake & Output 09/07/18 09/08/18 09/08/18 22:59 06:59 14:59 Intake Total 900 Balance 900 Med Orders - Current: Current Medications Acetaminophen (Tylenol Bulk Bottle) 325 - 650 mg PO Q6H PRN PRN Reason: Pain Last Admin: 09/06/18 17:49 Dose: 650 mg Benzocaine (Sglf-U-Godaezw 20% [place]) 0 gm TOP ASDIRECTED PRN PRN Reason: Perineal Comfort Measure Last Admin: 09/06/18 21:15 Dose: 1 spray Diphenhydramine HCl (Benadryl) 25 mg IVPUSH Q6H PRN PRN Reason: Itching Diphenhydramine HCl (Benadryl) 50 mg IVPUSH Q6H PRN PRN Reason: Itching Docusate Sodium (Colace) 100 mg PO DAILY ONOFRE Last Admin: 09/07/18 17:34 Dose: 100 mg Emollient Ointment (Lansinoh Hpa) 1 gm TOP ASDIRECTED PRN PRN Reason: Sore Nipples Last Admin: 09/06/18 21:01 Dose: 1 appful Fentanyl (Sublimaze) 100 mcg IVPUSH Q1H PRN PRN Reason: Pain (moderate 4-6) Last Admin: 09/05/18 22:45 Dose: 100 mcg Ferrous Sulfate (Ferrous Sulfate) 325 mg PO BIDMEALS [facility] Last Admin: 09/07/18 17:34 Dose: 325 mg Lactated Ringer's (Ringers, Lactated) 1,000 mls @ 125 mls/hr IV ASDIRECTED [facility] ; Protocol Last Admin: 09/06/18 07:27 Dose: 125 mls/hr Ibuprofen (Motrin Bulk Bottle) 600 mg PO Q6H PRN PRN Reason: Pain Last Admin: 09/06/18 13:10 Dose: 600 mg Methylergonovine Maleate (Methergine) 0.2 mg IM Q4H PRN PRN Reason: Bleeding Last Admin: 09/06/18 04:14 Dose: 0.2 mg Naloxone HCl (Narcan) 0.1 mg IVPUSH ASDIRECTED PRN PRN Reason: Oversedation Ondansetron HCl (Zofran) 4 mg IVPUSH Q4H PRN PRN Reason: Nausea/Vomiting Last Admin: 09/06/18 00:49 Dose: 4 mg Prenat Multivit/[place]/Iron/Folic Ac ( Plus Iron) 1 each PO DAILY [facility] Last Admin: 09/07/18 17:34 Dose: 1 each Sodium Chloride (Saline Flush) 10 ml FLUSH ASDIRECTED PRN PRN Reason: Keep Vein Open Witch Tonia (Tucks) 1 pad TOP ASDIRECTED PRN PRN Reason: Perineal Comfort Measure Last Admin: 09/06/18 21:15 Dose: 1 pad Discontinued Medications Acetaminophen (Tylenol) 650 mg PO Q4H PRN PRN Reason: Pain (Mild 1-3) and fever Carboprost Tromethamine (Hemabate Ds) Confirm Administered Dose 250 mcg .ROUTE .STK-MED ONE Stop: 09/06/18 03:48 Last Admin: 09/06/18 04:19 Dose: Not Given Dexamethasone (Dexamethasone) Confirm Administered Dose 4 mg .ROUTE .STK-MED ONE Stop: 09/06/18 04:41 Ephedrine Sulfate (Ephedrine Sulfate) Confirm Administered Dose 50 mg .ROUTE .STK-MED ONE Stop: 09/06/18 00:51 Last Admin: 09/06/18 04:19 Dose: Not Given Ephedrine Sulfate (Ephedrine Sulfate) 10 mg IVPUSH ASDIRECTED PRN PRN Reason: Hypotension Fentanyl (Sublimaze) Confirm Administered Dose 100 mcg .ROUTE .STK-MED ONE Stop: 09/06/18 02:39 Fentanyl (Sublimaze) Confirm Administered Dose 250 mcg .ROUTE .STK-MED ONE Stop: 09/06/18 04:41 Fentanyl (Sublimaze) 25 mcg IVPUSH ONETIME ONE Stop: 09/06/18 03:51 Last Admin: 09/07/18 00:17 Dose: Not Given Fentanyl (Sublimaze) 50 mcg IVPUSH ONETIME ONE Stop: 09/06/18 03:51 Last Admin: 09/06/18 04:00 Dose: 50 mcg Glycopyrrolate (Robinul) Confirm Administered Dose 1 mg .ROUTE .STK-MED ONE Stop: 09/06/18 04:41 Oxytocin/Sodium Chloride (Pitocin In Ns 20 Units/1,000 Ml) 20 unit in 1,000 mls @ 999 mls/hr IV ONETIME ONE; Protocol Stop: 09/05/18 21:18 Last Admin: 09/06/18 03:45 Dose: 999 mls/hr, 999 mls/hr Ropivacaine (Naropin 0.2%) Confirm Administered Dose 100 mls @ as directed .ROUTE .STK-MED ONE Stop: 09/06/18 01:16 Oxytocin/Sodium Chloride (Pitocin In Ns 20 Units/1,000 Ml) 20 unit in 1,000 mls @ 999 mls/hr IV ONETIME ONE; Protocol Stop: 09/06/18 06:49 Last Admin: 09/06/18 07:48 Dose: 150 mls/hr, 150 mls/hr Sodium Chloride (Normal Saline) Confirm Administered Dose 1,000 mls @ as directed .ROUTE .STK-MED ONE Stop: 09/06/18 06:30 Lidocaine HCl (Xylocaine 1%) Confirm Administered Dose 50 ml .ROUTE .STK-MED ONE Stop: 09/06/18 03:31 Last Admin: 09/06/18 04:19 Dose: Not Given Methylergonovine Maleate (Methergine) Confirm Administered Dose 0.2 mg .ROUTE .STK-MED ONE Stop: 09/06/18 03:48 Last Admin: 09/06/18 04:19 Dose: Not Given Methylergonovine Maleate (Methergine) 0.2 mg PO TID ONOFRE Stop: 09/07/18 21:01 Last Admin: 09/07/18 21:55 Dose: 0.2 mg Misoprostol (Cytotec) Confirm Administered Dose 800 mcg .ROUTE .STK-MED ONE Stop: 09/06/18 03:48 Last Admin: 09/06/18 04:19 Dose: Not Given Neostigmine Methylsulfate (Neostigmine) Confirm Administered Dose 5 mg .ROUTE .STK-MED ONE Stop: 09/06/18 04:41 Ondansetron HCl (Zofran) Confirm Administered Dose 4 mg .ROUTE .STK-MED ONE Stop: 09/06/18 04:41 Oxytocin (Pitocin) Confirm Administered Dose 20 unit .ROUTE .STK-MED ONE Stop: 09/06/18 06:29 Propofol (Diprivan 20 Ml) Confirm Administered Dose 200 mg .ROUTE .STK-MED ONE Stop: 09/06/18 04:41 Rocuronium [place] (Zemuron) Confirm Administered Dose 50 mg .ROUTE .STK-MED ONE Stop: 09/06/18 04:41 Sodium Chloride (Saline Flush) 10 ml FLUSH ASDIRECTED PRN PRN Reason: Keep Vein Open Succinylcholine Chloride (Quelicin) Confirm Administered Dose 200 mg .ROUTE .STK -MED ONE Stop: 09/06/18 04:41 - Interaction Infant Disposition, : in Room with Family Infant Interaction: Holding Infant Feeding: Breastfed Infant; Nursed Well Support Person: Mother, Significant Other - Recovery Exam Fundal Tone: Firm Fundal Level: 1 Fingerbreadths Below Umbilicus Fundal Placement: Midline Lochia Amount: Scant Lochia Color: Rubra/Red Perineum Description: Edematous Episiotomy/Laceration: Approximated Bladder Status: Voiding Urinary Elimination: Not Voiding - Exam General: Alert, Oriented HEENT: Pupils Equal, Pupils Reactive Neck: Supple Lungs: Clear to Auscultation, Normal Respiratory Effort Cardiovascular: Regular Rate, Regular Rhythm GI/Abdominal Exam: Normal Bowel Sounds, Soft Extremities: Normal Inspection, No Pedal Edema, Normal Capillary Refill Skin: Warm, Dry, Intact Wound/Incisions: Healing Well Neurological: No New Focal Deficit Psy/Mental Status: Alert, Normal Affect, Normal Mood - Problem List & Annotations (1) Smoker SNOMED Code(s): 94537254 Code(s): F17.200 - NICOTINE DEPENDENCE, UNSPECIFIED, UNCOMPLICATED Status: Acute Current Visit: Yes (2) SNOMED Code(s): 05241842 Code(s): Z34.90 - ENCNTR FOR SUPRVSN OF NORMAL , UNSP, UNSP TRIMESTER Status: Acute Current Visit: Yes Qualifiers: Weeks of gestation: 38 weeks Qualified Code(s): Z3A.38 - 38 weeks gestation of (3) PROM (premature rupture of membranes) SNOMED Code(s): 13915072 Code(s): O42.90 - ASHANTI ROM, 7TH0 BETW RUPT & ONST LABR, UNSP WEEKS OF GEST Status: Acute Current Visit: Yes Qualifiers: PROM onset of labor timing: onset of labor within 24 hours of rupture (4) () SNOMED Code(s): 906300778 Code(s): Z78.9 - OTHER SPECIFIED HEALTH STATUS Status: Acute Current Visit: Yes (5) Vaginal tear resulting from childbirth SNOMED Code(s): 503372357 Code(s): O71.4 - OBSTETRIC HIGH VAGINAL LACERATION ALONE Status: Acute Current Visit: Yes (6) Retained placenta or membranes SNOMED Code(s): 958615492 Code(s): O73.1 - RETAINED PORTIONS OF PLACENTA AND MEMBRANES, W/O HEMORRHAGE Status: Acute Current Visit: Yes - Problem List Review Problem List Initiated/Reviewed/Updated: Yes - Assessment Assessment:: 09/06/18 23 yr old G3 now P1 38 3/7 weeks with retained membranes and bilateral second degree vaginal wall tears smoker 09/07/2018 day one History of retained placenta, surgically removed Vaginal laceration repaired Fundus firm and bleeding decreasing:Hgb-9.1 fair Voiding and passing gas 09/08/18 Feeling great and is happy with baby needs support voiding without problem Flow light, bottom not super tender wants to not smoke ready to go home - Plan Plan:: 09/05/18 This 23 year old presented with rupture of membranes at home at about 1600 this evening. Fluid was clear. She is 38 3/7 weeks gestation, based on Early US. Positive AmniSure. Contractions started and are about 2-3 minutes apart and regular. Labs: HIV neg, Rubella Immune, GBS neg, ABO A pos cervical exam by nurse was 03-26/-1 at 1855. Plan: Admit for PROM Monitor for active labor. Doesn't want an epidural would like IV meds and or Nitrous for pain management UDS and UA neg HGB 10.8 and PLT 176 Smoker 09/06/18 Routine post cares CBC this morning and again tormorrow Methergine times 6 doses. no smoking support Discharge 09/07/18 Continue routine post cares Continue to support and encourage - to see no smoking Discharge home tomorrow 09/08/18 Home today script for nicotine patches written see me in 6-8 weeks for a post visit
[2018-09-08] MEDS: Ferrous Sulfate 325 MG Tab PO SCH (09:36)
[2018-09-08] MEDS: Prenatal Multivitamin with Calcium/Folic Acid/Iron Tab PO SCH (09:36)
[2018-09-08] MEDS: Docusate Sodium 100 MG Cap PO SCH (09:36)
== END 2018-09-08 14:55 | disposition home or self-care (01) | DRG 797 ==
LOC: JP.OBCHECK 17:58 → JP.OB 18:15 → OBSVTOIN 09-06 03:39 → JP.MS 09-06 08:25
PROVIDERS: ADMIT Nurse Practitioner Family; ATTEND Nurse Practitioner Family
PROC: 10E0XZZ Delivery of Products of Conception, External Approach (ICD-10-PCS; principal; 2018-09-06)
PROC: 10D17ZZ Extraction of Products of Conception, Retained, Via Natural or Artificial Opening (ICD-10-PCS; 2018-09-06)
PROC: 0KQM0ZZ Repair Perineum Muscle, Open Approach (ICD-10-PCS; 2018-09-06)
PROC: 00HU33Z Insertion of Infusion Device into Spinal Canal, Percutaneous Approach (ICD-10-PCS; 2018-09-06)
PROC: 3E0R3BZ Introduction of Anesthetic Agent into Spinal Canal, Percutaneous Approach (ICD-10-PCS; 2018-09-06)
DX: O69.81X0 Labor and delivery complicated by cord around neck, without compression, not applicable or unspecified (principal); O71.4 Obstetric high vaginal laceration alone; Z37.0 Single live birth; O72.1 Other immediate postpartum hemorrhage; O99.334 Smoking (tobacco) complicating childbirth; F17.210 Nicotine dependence, cigarettes, uncomplicated; O77.0 Labor and delivery complicated by meconium in amniotic fluid; Z3A.38 38 weeks gestation of pregnancy; Z91.030 Bee allergy status; O73.1 Retained portions of placenta and membranes, without hemorrhage
CPT/HCPCS: 36415; 51702; 59409; 80305-QW; 81003; 84112; 85018; 85025; 88307; 99211; A9270-GY; J0330; J1100; J2210; J2405; J2590; J2704; J2710; J2795; J3010; J3490; J7030; J7120

== ENCOUNTER 2022-09-23 13:46 | Emergency (ER) | payer MEDICAID ==
[2022-09-23] MEDS ORDERED: Sodium Chloride 0.9% 1,000 ML IV ONE (14:24)
[2022-09-23 14:36] LABS: BASOPHILS ABSOLUTE AUTO 0.04 K/uL (0.00-0.10); BASOPHILS PERCENT AUTO 0.3 % (0.1-1.3); EOSINOPHILS ABSOLUTE AUTO 0.08 K/uL (0.00-0.40); EOSINOPHILS PERCENT AUTO 0.7 % (0.0-5.4); HEMATOCRIT 34.8 % (34.3-46.0); HEMOGLOBIN 11.5 g/dL (11.2-15.5); IMMATURE GRAN ABSOLUTE AUTO 0.08 K/uL (0.00-0.23); IMMATURE GRAN PERCENT AUTO 0.7 % (0.0-0.7); LYMPHOCYTES PERCENT AUTO 12.3 % (11.4-47.7); MEAN CORPUSCULAR HEMOGLOBIN 27.9 pg (31.6-35.5); MEAN CORPUSCULAR VOLUME 84.5 fL (81.4-99.0); MONOCYTES ABSOLUTE AUTO 0.72 K/uL (0.20-0.90); MONOCYTES PERCENT AUTO 5.9 % (3.3-12.6); NEUTROPHILS ABSOLUTE AUTO 9.79 K/uL (1.0-7.6); NEUTROPHILS PERCENT AUTO 80.1 % (40.0-78.1); PLATELET COUNT,PLT 191 K/uL (130-375); RED BLOOD CELL COUNT 4.12 M/uL (3.77-5.24); WHITE BLOOD CELL COUNT,WBC 12.2 K/uL (3.2-11.0)
[2022-09-23 14:53] LABS: ANION GAP 11.1 mmol/L (5.0-14.0); CALCIUM 8.6 mg/dL (8.5-10.1); CREATININE 0.7 mg/dL (0.6-1.0); EST CRCL DRUG DOSING (CG) 121.78 mL/min; POTASSIUM,K 4.1 mmol/L (3.6-5.2)
[2022-09-23 16:09] LABS: APPEARANCE,URINE CLOUDY (CLEAR); BILIRUBIN,URINE NEGATIVE (NEGATIVE); COLOR,URINE YELLOW (YELLOW); GLUCOSE,URINE NEGATIVE (NEGATIVE); KETONES,URINE 15 mg/dL (NEGATIVE); LEUKOCYTE ESTERASE,URINE NEGATIVE (NEGATIVE); NITRITE,URINE NEGATIVE (NEGATIVE); OCCULT BLOOD,URINE NEGATIVE (NEGATIVE); PH,URINE 5.5 (5.0-8.0); PROTEIN,URINE NEGATIVE (NEGATIVE); UROBILINOGEN,URINE 0.2 EU/dL (0.2-1.0)
[2022-09-23 16:14] LABS: AMORPHOUS SEDIMENT,URINE NOT SEEN; BACTERIA,URINE MODERATE; EPITHELIAL CELLS,URINE MANY; MUCUS,URINE MODERATE; RBC,URINE 0-5 (0-5); WBC,URINE 0-5 (0-5)
== END 2022-09-23 16:37 | disposition home or self-care (01) ==
LOC: JP.ED 13:46
DX: O9A.213 Injury, poisoning and certain other consequences of external causes complicating pregnancy, third trimester (principal); S19.9XXA Unspecified injury of neck, initial encounter; S09.90XA Unspecified injury of head, initial encounter; O99.283 Endocrine, nutritional and metabolic diseases complicating pregnancy, third trimester; E86.0 Dehydration; E83.42 Hypomagnesemia; O99.333 Smoking (tobacco) complicating pregnancy, third trimester; F17.210 Nicotine dependence, cigarettes, uncomplicated; Z91.030 Bee allergy status; Z3A.38 38 weeks gestation of pregnancy
CPT/HCPCS: 36415; 80048; 81001; 83605; 83735; 85025; 93005; 96360; 99284; J7030